=== PATIENT | male | born 1945 | race Two or more races ===

== ENCOUNTER 2021-06-02 19:55 | Emergency (ER) | payer MEDICARE, OTHER ==
[~2021-06-02] VITALS: Ht 157.5 cm; Wt 77.1 kg
[2021-06-02 20:28] VITALS: BP 184/77
== END 2021-06-02 22:28 | disposition home or self-care (01) ==
LOC: EDBD 19:55 → ER 19:55
DX: R33.9 Retention of urine, unspecified (principal)
CPT/HCPCS: 51702

== ENCOUNTER 2021-07-25 15:17 | Inpatient (IN) | payer MEDICARE, MEDICAID ==
[~2021-07-25] VITALS: Ht 160 cm; Wt 50.9 kg
[2021-07-25] MEDS ORDERED: LIDOCAINE 2% JELLY 11ml (GLYDO) UR ONE (16:30)
[2021-07-25 17:03] LABS: Basophils # (auto) 0 10 ^3/uL (0-0.2); Basophils % (auto) 0.6 % (0.0-2.0); Eosinophils # (auto) 0 10 ^3/uL (0-0.8); Eosinophils % (auto) 0.1 % (0.0-7.0); Hematocrit 22.5 % (41.0-53.0); Hemoglobin 7.5 g/dL (13.5-17.5); Lymphocytes # (auto) 0.3 10 ^3/uL (0.4-5.4); Lymphocytes % (auto) 4.7 % (10.0-50.0); Mean Corpuscular Hemoglobin 32.7 pg (28.0-32.0); Mean Corpuscular Hgb Conc. 33.3 g/dL (32.0-36.0); Monocytes # (auto) 0.6 10 ^3/uL (0-1.3); Monocytes % (auto) 8.3 % (0.0-12.0); Neutrophils # (auto) 5.9 10 ^3/uL (1.6-8.6); Neutrophils % (auto) 86.3 % (37.0-80.0); Red Blood Cells 2.29 10^6/uL (4.5-5.90); Red Cell Distribution Width 14.1 % (11.8-14.3); White Blood Cell 6.9 10^3/uL (4.4-10.8)
[2021-07-25 17:31] LABS: Albumin 2.5 g/dL (3.4-5.0); Calcium 8.1 mg/dL (8.5-10.1)
[2021-07-25 17:35] LABS: BUN/Creatinine Ratio 15.3; Bilirubin, Total 0.5 mg/dL (0.2-1.0)
[2021-07-25 17:49] LABS: Urine Bacteria NONE SEEN /hpf (None Seen); Urine Blood 3+ /uL (Negative); Urine WBC 755 /hpf (0 - 3); Urine WBC Clumps PRESENT /hpf (None Seen)
[2021-07-25 17:58] LABS: Potassium 7.5 mmol/L (3.5-5.1)
[2021-07-25] MEDS ORDERED: SODIUM ZIRCONIUM CYCL 10 GM PAK PO ONE (19:15)
[2021-07-25] MEDS ORDERED: DEXTROSE (50%) 50ML SYRG IV ONE (19:15)
[2021-07-25] MEDS ORDERED: CALCIUM GLUC 1,000mg/50ml-NS 50 ML IV ONE (19:15)
[2021-07-25] MEDS ORDERED: SODIUM BICARBONATE 8.4% INJ 50ML SYRINGE IV ONE (19:15)
[2021-07-25] MEDS ORDERED: ALBUTEROL SULF 2.5 MG/0.5ML(0.5%) NEB SOLN NEB ONE (19:15)
[2021-07-25] MEDS ORDERED: InsuLIN REG 1unit/0.01ml Soln (100units/ml) IV ONE (19:15)
[2021-07-25] MEDS ORDERED: SODIUM BICARBONATE 8.4 % INJ 50ML VIAL IV ONE (20:45)
[2021-07-25] MEDS ORDERED: HYDROmorphone HCL 2 MG/ML VL IV ONE (21:45)
[2021-07-25] MEDS ORDERED: MORPHINE SULFATE INJECTION 2 MG/ML SYRG IV PRN (22:00)
[2021-07-25] MEDS ORDERED: ACETAMINOPHEN 325 MG TAB PO PRN (22:00)
[2021-07-25] MEDS ORDERED: cloNIDine HCL 0.1 MG TAB PO PRN (22:00)
[2021-07-25] MEDS ORDERED: NITROGLYCERIN 0.4 MG SL TAB SL PRN (22:00)
[2021-07-25] MEDS ORDERED: AZITHROMYCIN 500MG/ 250ML 250 ML IV ONE (22:00)
[2021-07-25] MEDS ORDERED: ONDANSETRON HCL 4 MG/2 ML VIAL IV PRN (22:00)
[2021-07-26] MEDS ORDERED: CALCIUM GLUC 1,000mg/50ml-NS 50 ML IV ONE ×3 (03:15→06:19)
[2021-07-26] MEDS ORDERED: DEXTROSE (50%) 50ML SYRG IV ONE (03:15)
[2021-07-26] MEDS ORDERED: FUROSEMIDE 40 MG/4 ML VIAL IV ONE (03:15)
[2021-07-26] MEDS ORDERED: SODIUM ZIRCONIUM CYCL 10 GM PAK PO ONE (03:15)
[2021-07-26] MEDS ORDERED: SODIUM BICARBONATE 8.4 % INJ 50ML VIAL IV ONE ×3 (03:15→06:19)
[2021-07-26] MEDS ORDERED: InsuLIN REG 1unit/0.01ml Soln (100units/ml) IV ONE (03:15)
[2021-07-26 04:06] LABS: Basophils # (auto) 0 10 ^3/uL (0-0.2); Eosinophils # (auto) 0 10 ^3/uL (0-0.8); Hematocrit 19.3 % (41.0-53.0); Lymphocytes # (auto) 0.5 10 ^3/uL (0.4-5.4); Monocytes # (auto) 0.7 10 ^3/uL (0-1.3); Red Blood Cells 1.97 10^6/uL (4.5-5.90)
[2021-07-26 04:07] LABS: Basophils % (auto) 0.2 % (0.0-2.0); Eosinophils % (auto) 0.1 % (0.0-7.0); Lymphocytes % (auto) 5.4 % (10.0-50.0); Mean Corpuscular Hemoglobin 32.5 pg (28.0-32.0); Mean Corpuscular Hgb Conc. 33.2 g/dL (32.0-36.0); Mean Corpuscular Volume 97.7 fL (80.0-100.0); Monocytes % (auto) 7.5 % (0.0-12.0); Neutrophils # (auto) 8.4 10 ^3/uL (1.6-8.6); Neutrophils % (auto) 86.8 % (37.0-80.0); Red Cell Distribution Width 14.3 % (11.8-14.3); White Blood Cell 9.7 10^3/uL (4.4-10.8)
[2021-07-26 04:19] LABS: Hemoglobin 6.4 g/dL (13.5-17.5)
[2021-07-26 04:37] LABS: Albumin 2.6 g/dL (3.4-5.0); BUN/Creatinine Ratio 14.8; Bilirubin, Total 0.4 mg/dL (0.2-1.0); Calcium 8.1 mg/dL (8.5-10.1); Total Protein 6.8 g/dL (6.4-8.2)
[2021-07-26 04:47] LABS: Potassium 6.7 mmol/L (3.5-5.1)
[2021-07-26] MEDS: SEVELAMER 800 MG TAB PO SCH ×3 (08:00→18:27)
[2021-07-26 09:33] LABS: INR 1.32 (0.9-1.15); Partial Thromboplastin Time 35.9 sec (23.6-33.0)
[2021-07-26] MEDS ORDERED: PANTOPRAZOLE 40 MG TAB PO SCH (10:00)
[2021-07-26] MEDS: amLODIPine BESYLATE 5 MG TAB PO SCH (10:20)
[2021-07-26 11:19] VITALS: BP 130/82
[2021-07-26 11:54] VITALS: BP 111/44
[2021-07-26] MEDS: HYDROcodone-ACET 5/325MG TAB PO PRN ×2 (12:04→18:26)
[2021-07-26 12:30] VITALS: BP 91/45
[2021-07-26] MEDS ORDERED: BISACODYL 10 MG RECT SUPP PR PRN (14:30)
[2021-07-26 16:39] LABS: Basophils # (auto) 0 10 ^3/uL (0-0.2); Eosinophils # (auto) 0 10 ^3/uL (0-0.8); Eosinophils % (auto) 0.1 % (0.0-7.0); Hemoglobin 7.8 g/dL (13.5-17.5); Lymphocytes # (auto) 0.7 10 ^3/uL (0.4-5.4); Mean Corpuscular Hemoglobin 31.1 pg (28.0-32.0); Mean Corpuscular Hgb Conc. 34.3 g/dL (32.0-36.0); Mean Corpuscular Volume 90.6 fL (80.0-100.0); Neutrophils # (auto) 8.3 10 ^3/uL (1.6-8.6); White Blood Cell 9.8 10^3/uL (4.4-10.8)
[2021-07-26 16:42] LABS: Basophils % (auto) 0.3 % (0.0-2.0); Hematocrit 22.8 % (41.0-53.0); Lymphocytes % (auto) 7.5 % (10.0-50.0); Monocytes # (auto) 0.7 10 ^3/uL (0-1.3); Monocytes % (auto) 7.6 % (0.0-12.0); Neutrophils % (auto) 84.5 % (37.0-80.0); Red Blood Cells 2.51 10^6/uL (4.5-5.90); Red Cell Distribution Width 19.8 % (11.8-14.3)
[2021-07-26 16:43] LABS: Albumin 2.3 g/dL (3.4-5.0); Calcium 7.4 mg/dL (8.5-10.1); Potassium 3.8 mmol/L (3.5-5.1)
[2021-07-26 16:48] LABS: BUN/Creatinine Ratio 12.8; Bilirubin, Total 0.4 mg/dL (0.2-1.0); Total Protein 6.1 g/dL (6.4-8.2)
[2021-07-26] MEDS: AZITHROMYCIN 500MG/ 250ML 250 ML IV SCH (22:46)
[2021-07-27] MEDS: SEVELAMER 800 MG TAB PO SCH ×3 (07:57→19:27)
[2021-07-27] MEDS: amLODIPine BESYLATE 5 MG TAB PO SCH (10:00)
[2021-07-27] MEDS ORDERED: HYDROmorphone HCL 2 MG/ML VL IV PRN ×2 (13:00→15:45)
[2021-07-27 15:29] VITALS: BP 102/47
[2021-07-27] MEDS ORDERED: B-CO-6 OR (16:04)
[2021-07-27] MEDS ORDERED: CALC667C PO (16:04)
[2021-07-27] MEDS ORDERED: TAMS0.4C36 PO (16:04)
[2021-07-27] MEDS ORDERED: POM SUBCUT (16:04)
[2021-07-27] MEDS ORDERED: CHOL20007 PO (16:04)
[2021-07-27] MEDS ORDERED: CYAN100L PO (16:04)
[2021-07-27 16:09] VITALS: BP 102/47
[2021-07-27 16:46] VITALS: BP 115/47
[2021-07-27 18:47] LABS: Hematocrit 20.7 % (41.0-53.0)
[2021-07-27 19:56] LABS: Hemoglobin 6.9 g/dL (13.5-17.5)
[2021-07-27] MEDS: AZITHROMYCIN 500MG/ 250ML 250 ML IV SCH (21:18)
[2021-07-27 22:00] VITALS: BP 124/46
[2021-07-28] VITALS (11 sets, daily range): BP systolic 102–124; BP diastolic 42–83
[2021-07-28 00:52] LABS: Hematocrit 19.8 % (41.0-53.0)
[2021-07-28 01:03] LABS: Hemoglobin 6.6 g/dL (13.5-17.5)
[2021-07-28 06:46] LABS: Hematocrit 19.5 % (41.0-53.0)
[2021-07-28] MEDS ORDERED: SODIUM CHL 0.9% 1000 ML BAG XX ONE (07:00)
[2021-07-28 07:02] LABS: INR 1.35 (0.9-1.15)
[2021-07-28 07:08] LABS: % Iron Saturation 49.1 % (20-55); Potassium 4.9 mmol/L (3.5-5.1)
[2021-07-28 07:16] LABS: BUN/Creatinine Ratio 11.2; Calcium 6.7 mg/dL (8.5-10.1)
[2021-07-28] MEDS: SEVELAMER 800 MG TAB PO SCH ×3 (08:00→18:35)
[2021-07-28 08:05] LABS: Hemoglobin 6.7 g/dL (13.5-17.5)
[2021-07-28] MEDS: amLODIPine BESYLATE 5 MG TAB PO SCH (08:18)
[2021-07-28] MEDS: TEMAZEPAM 15 MG CAP PO PRN (21:04)
[2021-07-28] MEDS: HYDROcodone-ACET 5/325MG TAB PO PRN (21:04)
[2021-07-28] MEDS: AZITHROMYCIN 500MG/ 250ML 250 ML IV SCH (21:26)
[2021-07-29 05:00] VITALS: BP 109/46
[2021-07-29 06:04] LABS: Basophils # (auto) 0 10 ^3/uL (0-0.2); Basophils % (auto) 0.4 % (0.0-2.0); Eosinophils # (auto) 0 10 ^3/uL (0-0.8); Eosinophils % (auto) 0.3 % (0.0-7.0); Hematocrit 29.3 % (41.0-53.0); Hemoglobin 9.9 g/dL (13.5-17.5); Lymphocytes % (auto) 18.5 % (10.0-50.0); Mean Corpuscular Hemoglobin 30.6 pg (28.0-32.0); Mean Corpuscular Hgb Conc. 33.7 g/dL (32.0-36.0); Mean Corpuscular Volume 90.8 fL (80.0-100.0); Monocytes # (auto) 0.9 10 ^3/uL (0-1.3); Neutrophils # (auto) 7.8 10 ^3/uL (1.6-8.6); Neutrophils % (auto) 72.8 % (37.0-80.0); Nucleated Red Blood Cells % 0.1 %; Red Blood Cells 3.22 10^6/uL (4.5-5.90); Red Cell Distribution Width 18.2 % (11.8-14.3); White Blood Cell 10.7 10^3/uL (4.4-10.8)
[2021-07-29 06:14] LABS: Calcium 6.5 mg/dL (8.5-10.1)
[2021-07-29 06:19] LABS: BUN/Creatinine Ratio 9.2
[2021-07-29] MEDS: amLODIPine BESYLATE 5 MG TAB PO SCH (08:00)
[2021-07-29] MEDS: SEVELAMER 800 MG TAB PO SCH ×3 (08:00→18:00)
[2021-07-29 09:00] VITALS: BP 97/52
[2021-07-29] MEDS ORDERED: cefTRIAXone 1GM/50ML D5W 50 ML IV ONE (11:30)
[2021-07-29 13:00] VITALS: BP 110/71
[2021-07-29 17:00] VITALS: BP 91/44
[2021-07-29 19:20] VITALS: BP 97/42
[2021-07-29] MEDS: AZITHROMYCIN 500MG/ 250ML 250 ML IV SCH (21:25)
[2021-07-29 22:00] VITALS: BP 90/44
[2021-07-30 05:00] VITALS: BP 110/47
[2021-07-30 05:32] LABS: Basophils # (auto) 0 10 ^3/uL (0-0.2); Basophils % (auto) 0.4 % (0.0-2.0); Eosinophils # (auto) 0 10 ^3/uL (0-0.8); Eosinophils % (auto) 0.3 % (0.0-7.0); Hematocrit 27.9 % (41.0-53.0); Hemoglobin 9.6 g/dL (13.5-17.5); Lymphocytes # (auto) 1.7 10 ^3/uL (0.4-5.4); Lymphocytes % (auto) 17.9 % (10.0-50.0); Mean Corpuscular Hemoglobin 30.8 pg (28.0-32.0); Mean Corpuscular Hgb Conc. 34.3 g/dL (32.0-36.0); Mean Corpuscular Volume 89.7 fL (80.0-100.0); Monocytes # (auto) 0.7 10 ^3/uL (0-1.3); Monocytes % (auto) 7.5 % (0.0-12.0); Neutrophils # (auto) 7.2 10 ^3/uL (1.6-8.6); Neutrophils % (auto) 73.9 % (37.0-80.0); Red Blood Cells 3.11 10^6/uL (4.5-5.90); Red Cell Distribution Width 17.2 % (11.8-14.3); White Blood Cell 9.7 10^3/uL (4.4-10.8)
[2021-07-30 05:56] LABS: Potassium 4.1 mmol/L (3.5-5.1)
[2021-07-30 06:02] LABS: BUN/Creatinine Ratio 10.7; Calcium 6.2 mg/dL (8.5-10.1)
[2021-07-30] MEDS: HYDROcodone-ACET 5/325MG TAB PO PRN ×4 (06:06→23:13)
[2021-07-30] MEDS: SEVELAMER 800 MG TAB PO SCH ×3 (08:00→18:00)
[2021-07-30 09:00] VITALS: BP 95/44
[2021-07-30] MEDS: cefTRIAXone 1GM/50ML D5W 50 ML IV SCH (09:00)
[2021-07-30] MEDS: amLODIPine BESYLATE 5 MG TAB PO SCH (09:45)
[2021-07-30 13:40] VITALS: BP 97/52
[2021-07-30 17:00] VITALS: BP 92/39
[2021-07-30 22:00] VITALS: BP 96/49
[2021-07-30] MEDS: AZITHROMYCIN 500MG/ 250ML 250 ML IV SCH (22:52)
[2021-07-31 05:00] VITALS: BP 96/43
[2021-07-31 05:29] LABS: Basophils # (auto) 0 10 ^3/uL (0-0.2); Basophils % (auto) 0.4 % (0.0-2.0); Eosinophils # (auto) 0.1 10 ^3/uL (0-0.8); Eosinophils % (auto) 0.8 % (0.0-7.0); Hematocrit 27.4 % (41.0-53.0); Hemoglobin 9.2 g/dL (13.5-17.5); Lymphocytes # (auto) 2.3 10 ^3/uL (0.4-5.4); Mean Corpuscular Hemoglobin 30.8 pg (28.0-32.0); Mean Corpuscular Hgb Conc. 33.7 g/dL (32.0-36.0); Mean Corpuscular Volume 91.3 fL (80.0-100.0); Monocytes # (auto) 0.7 10 ^3/uL (0-1.3); Monocytes % (auto) 7.4 % (0.0-12.0); Neutrophils # (auto) 6.8 10 ^3/uL (1.6-8.6); Neutrophils % (auto) 68.4 % (37.0-80.0); Red Cell Distribution Width 17.5 % (11.8-14.3)
[2021-07-31 05:45] LABS: Potassium 4.5 mmol/L (3.5-5.1)
[2021-07-31 05:48] LABS: BUN/Creatinine Ratio 11.4
[2021-07-31] MEDS ORDERED: SODIUM CHL 0.9% 1000 ML BAG XX ONE (07:00)
[2021-07-31 07:15] LABS: Calcium 5.4 mg/dL (8.5-10.1)
[2021-07-31] MEDS ORDERED: CALCIUM GLUC 1,000mg/50ml-NS 50 ML IV ONE (08:00)
[2021-07-31] MEDS: SEVELAMER 800 MG TAB PO SCH ×3 (08:00→18:00)
[2021-07-31 08:29] VITALS: BP 100/47
[2021-07-31] MEDS: amLODIPine BESYLATE 5 MG TAB PO SCH (10:00)
[2021-07-31 13:00] VITALS: BP 122/53
[2021-07-31 16:00] VITALS: BP 101/59
[2021-07-31 16:01] LABS: INR 1.22 (0.9-1.15)
[2021-07-31 16:04] LABS: Albumin 1.9 g/dL (3.4-5.0); Calcium 6.6 mg/dL (8.5-10.1); Potassium 3.6 mmol/L (3.5-5.1)
[2021-07-31 16:08] LABS: BUN/Creatinine Ratio 10.1; Bilirubin, Total 0.3 mg/dL (0.2-1.0); Total Protein 5.7 g/dL (6.4-8.2)
[2021-07-31 16:47] VITALS: BP 107/49
[2021-07-31] MEDS ORDERED: EPOETIN ALFA-EPBX 4,000 UNIT/ML VIAL SC ONE (21:00)
[2021-07-31 22:00] VITALS: BP 96/49
[2021-07-31] MEDS: HYDROcodone-ACET 5/325MG TAB PO PRN (22:56)
[2021-08-01 05:00] VITALS: BP 126/51
[2021-08-01 07:36] LABS: Calcium 6.2 mg/dL (8.5-10.1); Potassium 4.1 mmol/L (3.5-5.1)
[2021-08-01 07:38] LABS: BUN/Creatinine Ratio 10.4
[2021-08-01 07:54] LABS: Basophils # (auto) 0 10 ^3/uL (0-0.2); Basophils % (auto) 0.5 % (0.0-2.0); Eosinophils # (auto) 0.1 10 ^3/uL (0-0.8); Eosinophils % (auto) 0.7 % (0.0-7.0); Hematocrit 29.5 % (41.0-53.0); Hemoglobin 9.9 g/dL (13.5-17.5); Lymphocytes # (auto) 1.9 10 ^3/uL (0.4-5.4); Mean Corpuscular Hemoglobin 30.5 pg (28.0-32.0); Mean Corpuscular Hgb Conc. 33.5 g/dL (32.0-36.0); Mean Corpuscular Volume 91.1 fL (80.0-100.0); Monocytes # (auto) 0.8 10 ^3/uL (0-1.3); Monocytes % (auto) 10.3 % (0.0-12.0); Neutrophils # (auto) 5.3 10 ^3/uL (1.6-8.6); Neutrophils % (auto) 65.5 % (37.0-80.0); Red Blood Cells 3.23 10^6/uL (4.5-5.90); Red Cell Distribution Width 17.5 % (11.8-14.3); White Blood Cell 8.1 10^3/uL (4.4-10.8)
[2021-08-01] MEDS: SEVELAMER 800 MG TAB PO SCH ×3 (08:00→18:00)
[2021-08-01 09:00] VITALS: BP 115/78
[2021-08-01] MEDS: amLODIPine BESYLATE 5 MG TAB PO SCH (10:00)
[2021-08-01] MEDS: cefTRIAXone 1GM/50ML D5W 50 ML IV SCH (10:19)
[2021-08-01 13:00] VITALS: BP 111/76
[2021-08-01] MEDS ORDERED: SODIUM CHLORIDE LOCK 10 ML ONE (13:30)
[2021-08-01] MEDS ORDERED: PROPOFOL 10 MG/ML 20 ML IV ONE (13:30)
[2021-08-01] MEDS ORDERED: ONDANSETRON HCL 4 MG/2 ML VIAL ONE (13:30)
[2021-08-01] MEDS ORDERED: MIDAZOLAM HCL 2MG/2ML 2ml VIAL (1mg/ml) ONE (13:30)
[2021-08-01] MEDS ORDERED: fentaNYL CITRATE 100 MCG/2 ML VL ONE (13:30)
[2021-08-01] MEDS ORDERED: MORPHINE SULFATE 4 MG/ML SYR/VIAL IV PRN (14:00)
[2021-08-01] MEDS ORDERED: METOCLOPRAMIDE HCL 5MG/ml INJ 2ml VIAL IV PRN (14:00)
[2021-08-01] MEDS: HYDROmorphone HCL 2 MG/ML VL IV PRN ×3 (15:51→16:20)
[2021-08-01 17:22] VITALS: BP 138/63
[2021-08-01] MEDS: TEMAZEPAM 15 MG CAP PO PRN (23:00)
[2021-08-01] MEDS: HYDROcodone-ACET 5/325MG TAB PO PRN (23:00)
[2021-08-02 07:00] LABS: Basophils # (auto) 0 10 ^3/uL (0-0.2); Basophils % (auto) 0.4 % (0.0-2.0); Eosinophils # (auto) 0 10 ^3/uL (0-0.8); Hematocrit 32.3 % (41.0-53.0); Hemoglobin 10.6 g/dL (13.5-17.5); Lymphocytes # (auto) 0.4 10 ^3/uL (0.4-5.4); Lymphocytes % (auto) 6.2 % (10.0-50.0); Mean Corpuscular Hemoglobin 29.8 pg (28.0-32.0); Mean Corpuscular Hgb Conc. 32.8 g/dL (32.0-36.0); Mean Corpuscular Volume 90.8 fL (80.0-100.0); Monocytes # (auto) 0.2 10 ^3/uL (0-1.3); Monocytes % (auto) 3.7 % (0.0-12.0); Neutrophils # (auto) 5.9 10 ^3/uL (1.6-8.6); Neutrophils % (auto) 89.7 % (37.0-80.0); Red Blood Cells 3.56 10^6/uL (4.5-5.90); Red Cell Distribution Width 17.4 % (11.8-14.3); White Blood Cell 6.6 10^3/uL (4.4-10.8)
[2021-08-02] MEDS ORDERED: SODIUM CHL 0.9% 1000 ML BAG XX ONE (07:00)
[2021-08-02] MEDS: SEVELAMER 800 MG TAB PO SCH ×3 (08:00→18:36)
[2021-08-02 09:23] VITALS: BP 109/50
[2021-08-02] MEDS: amLODIPine BESYLATE 5 MG TAB PO SCH (09:25)
[2021-08-02] MEDS: cefTRIAXone 1GM/50ML D5W 50 ML IV SCH (09:32)
[2021-08-02] MEDS: HYDROcodone-ACET 5/325MG TAB PO PRN ×2 (09:33→17:14)
[2021-08-02 11:47] VITALS: BP 109/50
[2021-08-02 13:00] VITALS: BP 110/53
[2021-08-02 17:00] VITALS: BP 112/56
[2021-08-02] MEDS ORDERED: EPOETIN ALFA-EPBX 4,000 UNIT/ML VIAL SC ONE (21:00)
== END 2021-08-02 18:54 | disposition home or self-care (01) | DRG 713 ==
LOC: EDBD 15:17 → ER 15:22 → TELE 21:48 → TELE-WESTW 07-27 15:06 → TELE 07-31 12:14 → TELE-WESTW 07-31 12:18
PROVIDERS: ADMIT Nurse Practitioner; ATTEND Internal Medicine
PROC: 30233N1 Transfusion of Nonautologous Red Blood Cells into Peripheral Vein, Percutaneous Approach (ICD-10-PCS; 2021-07-26)
PROC: 5A1D70Z Performance of Urinary Filtration, Intermittent, Less than 6 Hours Per Day (ICD-10-PCS; 2021-07-26)
PROC: 5A1D70Z Performance of Urinary Filtration, Intermittent, Less than 6 Hours Per Day (ICD-10-PCS; 2021-07-28)
PROC: 5A1D70Z Performance of Urinary Filtration, Intermittent, Less than 6 Hours Per Day (ICD-10-PCS; 2021-07-31)
PROC: 0TCB8ZZ Extirpation of Matter from Bladder, Via Natural or Artificial Opening Endoscopic (ICD-10-PCS; 2021-08-01)
PROC: 0VT08ZZ Resection of Prostate, Via Natural or Artificial Opening Endoscopic (ICD-10-PCS; principal; 2021-08-01 14:11)
PROC: 0TBB8ZZ Excision of Bladder, Via Natural or Artificial Opening Endoscopic (ICD-10-PCS; 2021-08-01 14:11)
PROC: 5A1D70Z Performance of Urinary Filtration, Intermittent, Less than 6 Hours Per Day (ICD-10-PCS; 2021-08-02)
DX: C61 Malignant neoplasm of prostate (principal); N18.6 End stage renal disease; E43 Unspecified severe protein-calorie malnutrition; I12.0 Hypertensive chronic kidney disease with stage 5 chronic kidney disease or end stage renal disease; N13.30 Unspecified hydronephrosis; D62 Acute posthemorrhagic anemia; Z68.1 Body mass index [BMI] 19.9 or less, adult; E87.5 Hyperkalemia; R31.0 Gross hematuria; D49.4 Neoplasm of unspecified behavior of bladder; E87.70 Fluid overload, unspecified; Z20.822 Contact with and (suspected) exposure to COVID-19; R42 Dizziness and giddiness; N40.1 Benign prostatic hyperplasia with lower urinary tract symptoms; E83.51 Hypocalcemia; R59.0 Localized enlarged lymph nodes; R33.8 Other retention of urine; Z99.2 Dependence on renal dialysis; Z80.42 Family history of malignant neoplasm of prostate; Z91.15 Patient's noncompliance with renal dialysis
CPT/HCPCS: 36415; 71045; 74176; 80048; 80053; 81001; 82728; 82962; 83540; 83550; 84132; 84154; 84484; 85014; 85018; 85025; 85610; 85730; 86850; 86900; 86901; 86920; 87426; 90935; 93005; 93306; 94640; 96365; 96367; 96375; G0378; J0696; J1815; J2250; J2405; J2704